=== PATIENT | female | born 1995 | race Two or more races ===

== ENCOUNTER 2020-03-05 09:20 | Outpatient (REF) | payer OTHER, SELFPAY ==
[2020-03-05 10:29] LABS: Hematocrit 42.6 % (37-47); Mean Corpuscular HGB Conc 32.9 g/dl (31.0-35.0); Mean Corpuscular Hemoglobin 29.2 pg (27.0-33.0); Mean Corpuscular Volume 88.9 fL (80-98); Mean Platelet Volume 11.1 fL (9.4-12.3); Platelet Count 297 X10*3/uL (160-400); Red Blood Count 4.79 X10*6/uL (4.20-5.50); Red Cell Distribution Width 12.2 % (11.0-16.0)
[2020-03-05 11:14] LABS: Alanine Aminotransferase 18 U/L (0-31); Albumin Level 4.8 g/dL (3.5-5.0); Alkaline Phosphatase 72 U/L (39-117); Anion Gap 13 (12-20); Aspartate Amino Transferase 16 U/L (5-31); Bilirubin Direct 0.2 mg/dL (0.0-0.5); Bilirubin Total 0.4 mg/dL (0.0-1.0); Blood Urea Nitrogen 7 mg/dL (9-16); Calcium 9.4 mg/dL (8.4-10.2); Carbon Dioxide 28 mmol/L (22-29); Chloride 102 mmol/L (96-108); Cholesterol 165 mg/dL; Estimated Glomerular Filt Rate > 60; Glucose Fasting 83 mg/dL (60-99); HDL Cholesterol 58 mg/dL; LDL Cholesterol Calculated 98 mg/dl; Potassium 4.6 mmol/l (3.3-5.1); Sodium 138 mmol/L (135-145); Total Protein 7.4 g/dL (6.5-8.0); Triglycerides 49 mg/dL
[2020-03-05 11:34] LABS: TSH reflex Free T4 1.06 mIU/mL (0.32-4.0)
== END 2020-03-05 09:21 | disposition home or self-care (01) ==
LOC: HO.WFDLDS 09:20
PROVIDERS: Visit Provider Hospitalist
DX: Z00.00 Encounter for general adult medical examination without abnormal findings (principal); Z13.220 Encounter for screening for lipoid disorders
CPT/HCPCS: 36415; 80048; 80061; 80076; 84443; 85027

== ENCOUNTER 2020-08-06 10:54 | Outpatient (REF) | payer OTHER, SELFPAY ==
[2020-08-06 13:59] LABS: MANUAL DIFF FLAG NO
[2020-08-06 14:08] LABS: Basophils Percent Auto 0.4 % (0-2); Eosinophils Absolute Auto 0.2 X10*3/uL (0.0-0.4); Eosinophils Percent Auto 2.2 % (0-4); Hematocrit 41.6 % (37-47); Hemoglobin 13.7 g/dl (12.0-16.0); Imm Gran Abs Auto 0.02 X10*3/uL (0.00-0.03); Imm Gran Pct Auto 0.3 % (0.0-0.4); Lymphocytes Absolute Auto 1.5 X10*3/uL (1.2-4.9); Lymphocytes Percent Auto 19.6 % (20-40); Mean Corpuscular HGB Conc 32.9 g/dl (31.0-35.0); Mean Corpuscular Hemoglobin 28.7 pg (27.0-33.0); Mean Platelet Volume 11.9 fL (9.4-12.3); Monocytes Absolute Auto 0.4 X10*3/uL (0.1-1.2); Monocytes Percent Auto 5.6 % (2-11); Neutrophils Absolute Auto 5.5 X10*3/uL (2.0-8.3); Neutrophils Percent Auto 71.9 % (45-73); Platelet Count 243 X10*3/uL (160-400); Red Blood Count 4.78 X10*6/uL (4.20-5.50); Red Cell Distribution Width 11.6 % (11.0-16.0); White Blood Count 7.7 X10*3/uL (4.8-10.8)
[2020-08-06 14:12] LABS: Glucose Urine UA NEG (NEG); Leukocyte Esterase Urine TRACE (NEG); Nitrite Urine NEG (NEG); Specific Gravity - Urine 1.025 (1.005-1.025); Urine Blood 3+ (NEG); Urine Ketones NEG (NEG); Urine Protein 2+ MG/DL (NEG-TRACE)
[2020-08-06 14:16] LABS: Appearance Urine TURBID; Color Urine RED
[2020-08-06 14:17] LABS: PH 7.5 (5.0-8.0)
[2020-08-06 14:27] LABS: Cholesterol 186 mg/dL; HDL Cholesterol 56 mg/dL; LDL Cholesterol Calculated 119 mg/dl; Triglycerides 59 mg/dL
[2020-08-06 14:39] LABS: Bacteria Urine 1+ /LPF; Mucus Urine 1+ /LPF; RBC Urine TNTC /HPF (0); Squamous Epithelial Cell Urine 2+ /LPF
[2020-08-06 14:51] LABS: TSH reflex Free T4 0.66 uIU/mL (0.32-4.0)
[2020-08-06 15:14] LABS: Erythrocyte Sedimentation Rate 4 MM/HR (0-20)
[2020-08-06 15:16] LABS: Folate 11.1 ng/mL (> or = 4.0); Vitamin B12 362 pg/mL (200-900)
[2020-08-07 13:36] LABS: CRP High Sensitivity <0.3 mg/L
[2020-08-07 14:01] LABS: Anti Nuclear Antibody Screen NEGATIVE (NEGATIVE)
== END 2020-08-06 10:55 | disposition home or self-care (01) ==
LOC: HO.WFDLDS 10:54
PROVIDERS: Visit Provider Family Medicine
DX: Z00.00 Encounter for general adult medical examination without abnormal findings (principal); G89.29 Other chronic pain; R51.9 Headache, unspecified; E53.8 Deficiency of other specified B group vitamins
CPT/HCPCS: 36415; 80061; 81001; 81003; 82607; 82746; 84443; 85025; 85652; 86038; 86039; 86141

== ENCOUNTER 2020-09-09 15:56 | Outpatient (REF) | payer OTHER, SELFPAY ==
--- NOTE | ~2020-09-09 | XR_ITS ---
EXAMINATION: XR CERVICAL SPINE CLINICAL INFORMATION: Tension headache. COMPARISON: None TECHNIQUE: 3 views of the cervical spine were obtained. FINDINGS: There are no prevertebral soft tissue or bony abnormalities demonstrated. No compression fractures or subluxations are identified. Alignment is maintained at the atlanto-axial articulation. The disc spaces are preserved. No endplate changes are seen. The prevertebral soft tissues are normal. The foramina are patent. XR/XR cervical spine 3V IMPRESSION: Unremarkable cervical spine .
== END 2020-09-09 15:57 | disposition home or self-care (01) ==
LOC: HO.XRAY 15:56
PROVIDERS: PCP Family Medicine; Visit Provider Psychiatry & Neurology Neurology
DX: G44.209 Tension-type headache, unspecified, not intractable (principal)
CPT/HCPCS: 72040

== ENCOUNTER 2020-09-21 12:23 | Outpatient (REF) | payer OTHER, SELFPAY ==
[2020-09-21 13:49] LABS: Glucose Urine UA NEG (NEG); Leukocyte Esterase Urine NEG (NEG); Nitrite Urine NEG (NEG); PH 6.5 (5.0-8.0); Specific Gravity - Urine <= 1.005 (1.005-1.025); Urine Blood NEG (NEG); Urine Ketones NEG (NEG); Urine Protein NEG (NEG-TRACE)
[2020-09-21 13:53] LABS: Appearance Urine CLEAR; Color Urine STRAW
== END 2020-09-21 12:24 | disposition home or self-care (01) ==
LOC: HO.WFDLNP 12:23
PROVIDERS: Visit Provider Family Medicine
DX: Z00.00 Encounter for general adult medical examination without abnormal findings (principal); R82.90 Unspecified abnormal findings in urine
CPT/HCPCS: 81003; 87086

== ENCOUNTER 2021-01-19 19:22 | Outpatient (REF) | payer OTHER, SELFPAY ==
[2021-01-19 19:35] LABS: UPreg QC Valid YES; Urine Pregnancy POSITIVE (NEGATIVE)
== END 2021-01-19 19:23 | disposition home or self-care (01) ==
LOC: HO.LNP 19:22
PROVIDERS: Visit Provider Family Medicine
DX: S16.1XXS Strain of muscle, fascia and tendon at neck level, sequela (principal); R51.9 Headache, unspecified; G89.29 Other chronic pain; F41.9 Anxiety disorder, unspecified
CPT/HCPCS: 81025

== ENCOUNTER 2021-07-19 19:18 | Outpatient (REF) | payer OTHER, SELFPAY ==
--- NOTE | ~2021-07-19 | MR_ITS ---
MR CERVICAL SPINE WITHOUT IV CONTRAST CLINICAL INFORMATION: Cervical region radiculopathy. COMPARISON: Cervical spine radiographs September 09, 2020. TECHNIQUE: MRI of the cervical spine was obtained using routine sequences without contrast. FINDINGS: Cervical alignment is normal. The vertebral body heights are maintained. Disc volumes are preserved. There is no bone marrow edema. There are no acute fractures. Craniocervical junction is unremarkable. Partially imaged intracranial compartment is unremarkable. Cervical arterial flow voids are maintained. There are no cord signal changes. No significant extraspinal soft tissue findings. C2-C3: Disc contour is normal. Bilateral facet arthropathy. Mild right-sided foraminal encroachment. No central canal and no left foraminal stenosis. C3-C4: Uncovertebral joint spurring and facet arthropathy result in mild right-sided foraminal encroachment. No central canal and no left foraminal stenosis. C4-C5: Uncovertebral joint spurring and facet arthropathy result in mild left-sided foraminal encroachment. No central canal and no right foraminal stenosis. C5-C6: Slight annular disc bulge. No central canal stenosis and no foraminal stenosis. C6-C7: Shallow central disc protrusion. No central canal stenosis and no foraminal stenosis. C7-T1: Disc contour is normal. No central canal stenosis and no foraminal stenosis. MR/MR cervical spine wo con IMPRESSION: Mild cervical spondylosis. No severe central canal stenosis and no severe foraminal stenosis within the cervical spine.
== END 2021-07-19 19:19 | disposition home or self-care (01) ==
LOC: HO.MRI 19:18
PROVIDERS: Visit Provider Family Medicine
DX: M54.12 Radiculopathy, cervical region (principal); M54.2 Cervicalgia; R51.9 Headache, unspecified
CPT/HCPCS: 72141

== ENCOUNTER 2023-04-04 09:05 | Outpatient (AMB) | payer OTHER, SELFPAY ==
--- NOTE | 2023-04-04 09:10 | MHC.PC.OV ---
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 Accompanied by: Self / Same As Patient Allergies amoxicillin Allergy (Mild, Verified 04/04/23 09:28) not sure will check with her mom Tobacco use date assessed: 04/04/23 Dental Screening Dental Screen Date: 04/04/23 Did you have a dental visit in the last 12 months?: Yes Did you have a dental problem in the last 6 months where you did not have access to dental care?: No Was dental information given to patient?: Patient has dentist HPI HPI Comments History of Present Illness Details 27-year-old female presents with complaints of chronic posterior next pain which has been ongoing for about a year. She notes that it feels like it's on fire. She also reports neck stiffness. She notes associated bilat eye pain with neck movements. She states that her symptoms intensifies with neck movements She is followed by [facility]. Her last visit was on 01/2023. She received steroid injection of C2-4. She notes that the injection was not effective. She has an appointment next week. She has not resumed PT She notes that she never tried gabapentin although he was prescribed by Neurology a long time ago She states that she is currently breast feeding [facility] Medical History Aftercare following left ankle joint replacement surgery Surgical History (Updated 04/04/23 @ 09:16 by Mery Dacosta MA) No pertinent past surgical history Family History Maternal Grandmother High blood pressure Diabetes Mother High blood pressure Social History Housing: Apartment Alcohol intake: never Patient Tobacco Use Status: Never used Tobacco e-Cigarette/Vaping Use: Never Used Second Hand Smoke Exposure: No service: No Current occupational exposures/hazards: No Cognitive needs: No Hearing needs: No Vision needs: No Questionnaire Thrive Questionnaire Date Thrive assessed: 01/19/21 NICHOLAS-7 AMB Questionnaire NICHOLAS-7 Date NICHOLAS - 7 assessed: 11/02/21 Source: Developed by Drs. Timmy Carpenter, Lavinia Somers, Gerardo Street and colleagues, with an educational sean from [employer]. Review of Systems Const Details: Const Denies chills, Denies fatigue, Denies fever(s), Denies headache(s) and Denies weakness ENT Denies dizziness and Denies headache(s) Card Denies chest pain, Denies lightheadedness, Denies dyspnea and Denies other (Palpitations) Resp Denies cough, Denies dyspnea, Denies wheezing and Denies other ( shortness of breath) GI Denies abdominal pain, Denies melena, Denies hematochezia, Denies change in bowel habits, Denies dyspepsia and Denies nausea Denies hematuria and Denies dysuria Musc Reports neck pain, Denies abnormal gait, Denies numbness and Denies tingling Skin/Breast Denies rash, Denies unusual bruising and Denies wounds Neuro Denies abnormal gait, Denies dizziness, Denies headache(s), Denies memory loss, Denies numbness, Denies Sensory deficit (Neuro), Denies tingling and Denies weakness Psych Denies anxiety, Denies depression, Denies memory loss Endo Denies cold intolerance, Denies fatigue, Denies heat intolerance, Denies polydipsia and Denies polyuria Aller/Immun Denies wheezing Physical exam (Primary Care) Vital Signs: Last Vital Signs Temp 96.8 F 04/04/23 09:11 Pulse 81 04/04/23 09:11 Resp 13 04/04/23 09:11 BP 108/66 04/04/23 09:11 Pulse Ox 98 04/04/23 09:11 Oxygen Delivery Method Room Air 04/04/23 09:11 BMI result Body Mass Index 27.5 Tobacco/Smoking Status: Tobacco use Status Tobacco use date assessed 04/04/23 04/04/23 09:16 Patient Tobacco Use Status Never used Tobacco 04/04/23 09:16 e-Cigarette/Vaping Use Never Used 04/04/23 09:16 Thrive Assessment: Date of Thrive Assessment Date Thrive assessed 01/19/21 04/04/23 09:16 Const Other: General: no acute distress and well developed Nutritional Appearance: well nourished Orientation/consciousness: patient oriented x3 HENOK Head: Yes normocephalic and Yes atraumatic Eyes General: appearance normal, both eyes and all related structures Pupils: Equal, round and reactive pupils present EOM: EOMs intact bilaterally Resp Effort & Inspection: normal respiratory effort Auscultation: clear to auscultation bilaterally Cardio Rate: regular rate Rhythm: regular rhythm Heart sounds: S1 normal heart sound present, S2 normal heart sound present, no gallops, no murmurs and no rubs GI Palpation (GI): No Abdominal aortic bruit present, Soft to palpation, nontender, No hepatosplenomegaly present and No Rebound tenderness present Auscultation: normal bowel sounds General: Yes no CVA tenderness Back/Spine/Pelvis Back: no CVA tenderness Cervical Spine: cervical ROM normal and No Cervical spine tenderness Thoracic/Lumbar Spine: thoraco-lumbar ROM normal, No pain with thoraco-lumbar ROM, No thoracic spinal tenderness and No lumbar spinal tenderness Extrem General: Yes normal to inspection, No edema and No calf tenderness Skin General: warm and dry. Normal skin color. Normal skin turgor Lesions: no lesions Rashes: no rashes Trauma: no lacerations or abrasions Wounds: no wounds Nails: normal Neuro General: patient oriented x3, gait normal and no focal neuro deficit Cranial nerves: Yes Equal, round and reactive pupils present Cognition (Neuro): normal cognition Gait exam (Neuro): Normal gait present Sensory Exam: No Sensory deficit (Neuro) Psych Appearance: grossly normal Affect: normal affect Attitude: cooperative Thought process: Normal thought process present Assessment and Plan Assessment & Plan (1) Cervicalgia: Code(s): M54.2 - Cervicalgia Plan: Neck pain and stiffness, worses with movements Cervical spine nontender to palpation Gabapentin ordered. Take as prescribed. Save for Warm/cool compresses encouraged Follow-up with physiatry as planned Follow-up with PCP for an extended physical exam Return with worsening or new symptoms Verbalized understanding and agreed with treatment plan Medications: New gabapentin 300 mg PO BEDTIME 30 caps 0RF 30 days Coding Level of Care Code Est Pt Level 3 (09604) Diagnoses Cervicalgia M54.2
[2023-04-04 09:11] VITALS: BP 108/66; PULSE 81; RESP 13; TEMP 36; O2SAT 98; BMI 27.5
== END 2023-04-04 09:45 | disposition home or self-care (01) ==
PROVIDERS: PCP Family Medicine; Visit Provider Nurse Practitioner Family
DX: M54.2 Cervicalgia (principal)
CPT/HCPCS: 99213

== ENCOUNTER 2024-02-01 11:38 | Outpatient (AMB) | payer OTHER, SELFPAY ==
--- NOTE | 2024-02-01 12:03 | MHC.PC.OV ---
Vital Signs 02/01/24 12:07 Height 5 ft 4 in Weight 159 lb 8 oz BMI 27.4 BP 107/57 L Blood Pressure Location Lt brachial Position Sitting Respiration 16 Pulse 90 Pulse Source Pulse Oximeter Temp 98.1 F Temp Source Temporal Artery Scan Pulse Oximetry (%) 98 Oxygen Delivery Method Room Air Intake Visit Reasons: f/u neck pain Intake Note: f/u neck pain Allergies amoxicillin Allergy (Mild, Verified 02/01/24 12:05) not sure will check with her mom Tobacco use date assessed: 04/04/23 Dental Screening Dental Screen Date: 04/04/23 HPI f/u neck pain HPI Details 28 y/o female presents today to f/u neck pain. Has been seen by [facility] in the spring. Was prescribed gabapentin. States she has trialed some PT which did help some. She also notes they have trialed injection therapy which helped as well. She notes she thinks neck pain comes from her anxiety. She feels she does not think pain meds will help much for her. HPI Comments History of Present Illness Details Documentation assistance for Aakash Rivera MD, was provided by Germán Man, Tumbling Instructor on 02/01/2024 at 12:55 PM EST. I, Dr. Rivera, have read, observed, and verified documentation. [facility] Medical History Aftercare following left ankle joint replacement surgery Surgical History (Updated 04/04/23 @ 09:16 by ALEX Hsieh) No pertinent past surgical history Family History Maternal Grandmother High blood pressure Diabetes Mother High blood pressure Social History Housing: Apartment Alcohol intake: never Patient Tobacco Use Status: Never used Tobacco e-Cigarette/Vaping Use: Never Used Second Hand Smoke Exposure: No service: No Current occupational exposures/hazards: No Cognitive needs: No Hearing needs: No Vision needs: No Questionnaire PHQ-9 Over the last 2 weeks, how often have you been bothered by any of the following problems? 4. Feeling tired or having little energy: several days 5. Poor appetite or overeating: not at all 9. Thoughts that you would be better off or of hurting yourself in some way: not at all Source: Developed by Drs. Timmy Carpenter, Lavinia oSmers, Gerardo Street and colleagues, with an educational sean from [employer]. Thrive Questionnaire Date Thrive assessed: 01/19/21 I am a: Patient What is your living situation today?: I have a steady place to live Within the past 12 months, did the food you bought not last and you didn't have the money to get more?: I choose not to answer this question Within the past 12 months, did you worry whether your food would run out before you got money to buy more?: I choose not to answer this question Do you have trouble paying for medicines?: No Do you have trouble getting transportation to medical appointments?: No Do you have trouble paying your heating and electricity bill?: I choose not to answer this question Do you have trouble taking care of your child, family member or friend?: No Do you have trouble with day-to-day activities such as bathing, preparing meals, shopping, managing finances, etc.?: No Are you currently unemployed and looking for a job?: No Are you interested in more education?: No Please select the resources that you would like help with: None Currently or been in a relationship where the following occur: No concerns reported THRIVE Score: 0 AUDIT C Alcohol Use Questionnaire (AUDIT-C) 1. How often do you have a drink containing alcohol?: Never Total Score: 0 NICHOLAS-7 AMB Questionnaire NICHOLAS-7 Date NICHOLAS - 7 assessed: 11/02/21 Feeling nervous, anxious, or on edge: 1 = Several days Not being able to stop or control worryin = Not at all Worrying too much about different things: 0 = Not at all Trouble relaxin = Not at all Being so restless that it is hard to sit still: 0 = Not at all Becoming easily annoyed or irritable: 1 = Several days Feeling afraid as if something awful might happen: 0 = Not at all Total NICHOLAS-7 score (0-4 normal; 5-9 mild; 10-14 moderate; 15-21 severe): 2 Source: Developed by Lavinia Almodovar Kurt Kroenke and colleagues, with an educational sean from [employer]. Review of Systems Const Denies chills, Denies fatigue, Denies fever(s), Denies headache(s) and Denies weakness ENT Denies dizziness, Denies headache(s) and Reports neck pain Card Denies dyspnea Resp Denies cough, Denies dyspnea, Denies wheezing and Denies other (shortness of breath) Musc Reports neck pain, Denies numbness and Denies tingling Neuro Denies dizziness, Denies headache(s), Denies numbness, Denies tingling and Denies weakness Psych Reports anxiety and Denies depression Endo Denies fatigue Aller/Immun Denies wheezing Physical exam (Primary Care) Vital Signs: Last Vital Signs Temp 98.1 F 02/01/24 12:07 Pulse 90 02/01/24 12:07 Resp 16 02/01/24 12:07 BP 107/57 L 02/01/24 12:07 Pulse Ox 98 02/01/24 12:07 Oxygen Delivery Method Room Air 02/01/24 12:07 BMI result Body Mass Index 27.4 Tobacco/Smoking Status: Tobacco use Status Tobacco use date assessed 04/04/23 02/01/24 12:04 Patient Tobacco Use Status Never used Tobacco 02/01/24 12:04 e-Cigarette/Vaping Use Never Used 02/01/24 12:04 Thrive Assessment: Date of Thrive Assessment Date Thrive assessed 01/19/21 02/01/24 12:04 Currently or been in a relationship where the following occur: No concerns reported Const General: well developed; No acute distress Nutritional Appearance: well nourished Orientation/consciousness: patient oriented x3 [facility] Head: Yes normocephalic and Yes atraumatic Eyes General: appearance normal, both eyes and all related structures Pupils: Equal, round and reactive pupils present EOM: EOMs intact bilaterally Resp Effort & Inspection: normal respiratory effort Auscultation: clear to auscultation bilaterally Cardio Rate: regular rate Rhythm: regular rhythm Heart sounds: S1 normal heart sound present, S2 normal heart sound present, no gallops, no murmurs and no rubs Neuro General: patient oriented x3 and gait normal Cranial nerves: Yes Equal, round and reactive pupils present Psych Affect: normal affect Coding Level of Care Code Est Pt Level 3 (18528) Diagnoses Cervicalgia M54.2 Anxiety F41.9 Assessment & Plan Assessment & Plan (1) Cervicalgia: Code(s): M54.2 - Cervicalgia Category: Medical Plan: Longstanding?cervicalgia. She?had?an?MRI?which?showed?cervical?spine facet?arthropathy?but?no?canal?stenosis?or?foraminal?stenoses. Also?has?rather?tense,?tender?trapezius?muscles?and?cervical?paraspinous?muscles. Start?naproxen?b.i.d. Will?also?refer?her?to?[facility]where?she?has?done?physical?therapy?and?injection?therapy?in?the?past?with?good?affect. Will?also?give?her?a?course?of?muscle?relaxant (2) Anxiety: Code(s): F41.9 - Anxiety disorder, unspecified Category: Medical Plan: This?may?be?an?underlying?cause?for?the?neck?muscle?tension Will?follow-up?at?her?next?visit Orders: Orders Comprehensive Mccrory. Panel Fast Today Z00.00 - Encounter for general adult medical examination without abnormal findings Complete Blood Count Auto Diff Today Z00.00 - Encounter for general adult medical examination without abnormal findings UA and rflx microscopic Today Z00.00 - Encounter for general adult medical examination without abnormal findings Erythrocyte Sedimentation Rate Today M54.2 - Cervicalgia Lipid Panel Today Z00.00 - Encounter for general adult medical examination without abnormal findings Microalbumin, Random (w Creat) Today I10 - Essential (primary) hypertension TSH reflex Free T4 Today Z00.00 - Encounter for general adult medical examination without abnormal findings Referrals Physiatry Referral M54.2 - Cervicalgia Medications: New cyclobenzaprine 10 mg PO BID 10 days PRN 20 tabs 0RF muscle spasm naproxen 500 mg PO BID 30 days PRN 60 tabs 0RF pain
[2024-02-01 12:07] VITALS: BP 107/57; PULSE 90; RESP 16; TEMP 36.7; O2SAT 98; BMI 27.4
== END 2024-02-01 12:58 | disposition home or self-care (01) ==
LOC: HO.HMCFM 11:39
PROVIDERS: PCP Family Medicine; Visit Provider Family Medicine
DX: M54.2 Cervicalgia (principal); F41.9 Anxiety disorder, unspecified

== ENCOUNTER → 2024-02-01 11:38 | Outpatient (BNVA) | payer OTHER, SELFPAY | PROVIDERS: PCP Family Medicine; Visit Provider Family Medicine | DX: M54.2 Cervicalgia (principal); F41.9 Anxiety disorder, unspecified | CPT/HCPCS: 99212 ==

== ENCOUNTER 2024-12-04 15:50 | Outpatient (AMB) | payer OTHER, SELFPAY ==
--- NOTE | 2024-12-04 16:04 | A.OFFPC_ITS ---
Vital Signs 12/04/24 16:09 Height 5 ft 4 in Weight 165 lb 4 oz BMI 28.4 BP 121/65 Blood Pressure Location Rt brachial Position Sitting Respiration 12 Pulse 74 Pulse Source Pulse Oximeter Temp 96.6 F L Temp Source Temporal Artery Scan Pulse Oximetry (%) 97 Oxygen Delivery Method Room Air Intake Visit Reasons: Physical Intake Note: Physical Director Of Physical Education Required: No Allergies amoxicillin Allergy (Mild, Verified 12/04/24 16:05) not sure will check with her mom Medication List - Last Reconciled 12/04/24 by Aakash Rivera MD naproxen 500 mg PO BID PRN 30 days Tobacco use date assessed: 12/04/24 Dental Screening Dental Screen Date: 12/04/24 Did you have a dental visit in the last 12 months?: Yes Did you have a dental problem in the last 6 months where you did not have access to dental care?: No Was dental information given to patient?: Patient has dentist HPI Physical HPI Details 29 y/o female presents for a CPE with f/ u labs and health maintenance. No recent labs to review. Pt notes most of her anxiety/depression stems from feeling she is not able to pass a particular exam. She requests help for difficulty concentrating. [facility] Medical History Aftercare following left ankle joint replacement surgery Surgical History (Updated 04/04/23 @ 09:16 by ALEX Hsieh) No pertinent past surgical history Family History Maternal Grandmother High blood pressure Diabetes Mother High blood pressure Social History Housing: Apartment Alcohol intake: never Patient Tobacco Use Status: Never used Tobacco e-Cigarette/Vaping Use: Never Used Second Hand Smoke Exposure: No service: No Current occupational status: employed Current occupational exposures/hazards: No Cognitive needs: No Hearing needs: No Vision needs: No Questionnaire PHQ-9 Over the last 2 weeks, how often have you been bothered by any of the following problems? 1. Little interest or pleasure in doing things: not at all 2. Feeling down, depressed, or hopeless: not at all 3. Trouble falling or staying asleep, or sleeping too much: not at all 4. Feeling tired or having little energy: more than half the days 5. Poor appetite or overeating: not at all 6. Feeling bad about yourself - or that you are a failure or have let yourself or your family down: more than half the days 7. Trouble concentrating on things, such as reading the newspaper or watching television: more than half the days 8. Moving or speaking so slowly that other people could have noticed. Or the opposite - being so fidgety or restless that you have been moving around a lot more than usual: not at all 9. Thoughts that you would be better off or of hurting yourself in some way: not at all Total score: 6 Depression Screening Interpretation: Positive Depression Screening Done: Yes 55390 - PHQ-9 Billing: Yes Source: Developed by Drs. Timmy Carpenter, Lavinia Somers, Gerardo Street and colleagues, with an educational sean from [employer]. Thrive Questionnaire Date Thrive assessed: 12/04/24 I am a: Patient What is your living situation today?: I have a steady place to live Within the past 12 months, did the food you bought not last and you didn't have the money to get more?: Never true Within the past 12 months, did you worry whether your food would run out before you got money to buy more?: Never true Do you have trouble paying for medicines?: No Do you have trouble getting transportation to medical appointments?: No Do you have trouble paying your heating and electricity bill?: No Do you have trouble taking care of your child, family member or friend?: No Do you have trouble with day-to-day activities such as bathing, preparing meals, shopping, managing finances, etc.?: No Are you currently unemployed and looking for a job?: No Are you interested in more education?: No Please select the resources that you would like help with: None Currently or been in a relationship where the following occur: No concerns rep orted THRIVE Score: 0 AUDIT C Alcohol Use Questionnaire (AUDIT-C) 1. How often do you have a drink containing alcohol?: Never Total Score: 0 NICHOLAS-7 AMB Questionnaire NICHOLAS-7 Date NICHOLAS - 7 assessed: 12/04/24 Feeling nervous, anxious, or on edge: 0 = Not at all Not being able to stop or control worryin = Not at all Worrying too much about different things: 1 = Several days Trouble relaxin = Several days Being so restless that it is hard to sit still: 0 = Not at all Becoming easily annoyed or irritable: 1 = Several days Feeling afraid as if something awful might happen: 0 = Not at all Total NICHOLAS-7 score (0-4 normal; 5-9 mild; 10-14 moderate; 15-21 severe): 3 Source: Developed by Drs. Timmy Carpenter, Lavinia Somers, Gerardo Street and colleagues, with an educational sean from [employer]. NICHOLAS-7 Assessment Billing NICHOLAS-7 Assessment Tool: NICHOLAS-7 Assessment 74839 Review of Systems Const Denies chills, Denies fatigue, Denies fever(s), Denies headache(s) and Denies weakness Eyes Denies change in vision ENT Denies dizziness, Denies headache(s), Denies hearing loss, Denies nasal congestion, Denies sinus pain, Denies sinus pressure and Denies sore throat Card Denies chest pain, Denies lightheadedness, Denies dyspnea and Denies other (palpitations) Resp Denies cough, Denies dyspnea and Denies wheezing GI Denies abdominal pain, Denies melena, Denies hematochezia, Denies change in bowel habits, Denies dyspepsia and Denies nausea Denies hematuria and Denies dysuria Musc Denies abnormal gait, Denies myalgias, Denies arthralgias, Denies numbness and Denies tingling Skin/Breast Denies rash, Denies unusual bruising and Denies wounds Neuro Denies abnormal gait, Denies dizziness, Denies headache(s), Denies memory loss, Denies numbness, Denies Sensory deficit (Neuro), Denies tingling and Denies weakness Psych Denies anxiety, Denies depression and Denies memory loss Endo Denies cold intolerance, Denies fatigue, Denies heat intolerance, Denies polydipsia and Denies polyuria Ben/Lymph Denies easy bleeding and Denies easy bruising Aller/Immun Denies wheezing Physical exam (Primary Care) Vital Signs: Last Vital Signs Temp 96.6 F L 12/04/24 16:09 Pulse 74 12/04/24 16:09 Resp 12 12/04/24 16:09 BP 121/65 12/04/24 16:09 Pulse Ox 97 12/04/24 16:09 Oxygen Delivery Method Room Air 12/04/24 16:09 BMI result Body Mass Index 28.4 Tobacco/Smoking Status: Tobacco use Status Tobacco use date assessed 12/04/24 12/04/24 16:07 Patient Tobacco Use Status Never used Tobacco 12/04/24 16:07 e-Cigarette/Vaping Use Never Used 12/04/24 16:07 PHQ-9: PHQ-9 Score PHQ-9: Total score 6 12/04/24 16:07 Depression Screening Interpretation: Positive Thrive Assessment: Date of Thrive Assessment Date Thrive assessed 12/04/24 12/04/24 16:07 Currently or been in a relationship where the following occur: No concerns reported Const General: no acute distress, well developed, alert and awake Nutritional Appearance: well nourished Orientation/consciousness: patient oriented x3 HENMT Head: Yes normocephalic and Yes atraumatic Ears: hearing grossly normal bilaterally and TM's normal bilaterally General nose exam: Normal external nose present and Normal nares present Mouth: Normal oral and palatal mucosa present and moist mucous membranes Teeth and gingiva: dentition normal Throat: Yes posterior oropharynx normal Eyes General: appearance normal, both eyes and all related structures Pupils: Equal, round and reactive pupils present and Pupil accommodation reflex normal EOM: EOMs intact bilaterally Neck Neck: Yes normal visual inspection, Yes no lymphadenopathy and Yes trachea midline Thyroid: Thyroid normal Carotids: no bruits Lymphatic: no lymphadenopathy noted Chest Chest palpation & inspection: normal inspection of the chest Resp Effort & Inspection: normal respiratory effort Auscultation: clear to auscultation bilaterally Cardio Rate: regular rate Rhythm: regular rhythm Heart sounds: S1 normal heart sound present, S2 normal heart sound present, no gallops, no murmurs and no rubs Bruits: no abdominal aortic bruits and no carotid bruits GI Palpation (GI): No Abdominal aortic bruit present, Soft to palpation, nontender, No hepatosplenomegaly present and No Rebound tenderness present Auscultation: normal bowel sounds General: Yes no CVA tenderness Back/Spine/Pelvis Back: no CVA tenderness Cervical Spine: cervical ROM normal and No Cervical spine tenderness Thoracic/Lumbar Spine: thoraco-lumbar ROM normal, No pain with thoraco-lumbar ROM, No thoracic spinal tenderness and No lumbar spinal tenderness Skin Lesions: no lesions Rashes: no rashes Trauma: no lacerations or abrasions Wounds: no wounds Nails: normal Neuro General: patient oriented x3 Cranial nerves: Yes Equal, round and reactive pupils present Cognition (Neuro): normal cognition Gait exam (Neuro): Normal gait present Motor exam (neuro): 5/5 motor strength present throughout Sensory Exam: No Sensory deficit (Neuro) Deep tendon reflexes (DTR's): Right patellar reflex intensity grade: 2+ and Left patellar reflex intensity grade: 2+ Extrem General: Yes normal to inspection and No edema Psych Appearance: grossly normal Affect: normal affect Attitude: cooperative Thought process: Normal thought process present Coding Level of Care Code Est Pt Level 4 (39361) Diagnoses Anxiety F41.9 Difficulty concentrating R41.840 Adult general medical examination Z00.00 Incidental Z33.1 Screening for cervical cancer Z12.4 Additional Codes NICHOLAS-7 Assessment Billing - NICHOLAS-7 Assessment Tool: NICHOLAS-7 Assessment [id number] ([id number]) PHQ-9 - 33987 - PHQ-9 Billing: Yes ([id number]) Assessment & Plan Assessment & Plan (1) Anxiety: Code(s): F41.9 - Anxiety disorder, unspecified Category: Medical (2) Difficulty concentrating: Code(s): R41.840 - Attention and concentration deficit Category: Medical (3) Adult general medical examination: Code(s): Z00.00 - Encounter for general adult medical examination without abnormal findings Category: Medical Plan: 29-year-old female presents for complete physical Exam within normal limits (4) Incidental : Code(s): Z33.1 - state, incidental Category: Medical Plan: Estimated delivery date is March 13 She has regular care Follow-up with your OB as recommended (5) Screening for cervical cancer: Code(s): Z12.4 - Encounter for screening for malignant neoplasm of cervix Category: Medical Plan: Currently Follow-up with your OB Plan Anxiety and difficulty concentrating She does have a therapist She would like evaluation regarding difficulty concentrating Referred to [facility] [place] outpatient psychiatric consult team. Advised patient that regardless of her diagnosis she should likely hold off on any medications until she has delivered her baby and can also discuss with her OBGYN. Orders: Orders TSH reflex Free T4 Today Z00.00 - Encounter for general adult medical examination without abnormal findings UA CC w/rflx Micro + Cult Today Z00.00 - Encounter for general adult medical examination without abnormal findings HIV Ab/Ag Today Z11.3 - Encounter for screening for infections with a predominantly sexual mode of transmission Vitamin B12 and Folate Today E53.8 - Deficiency of other specified B group vitamins Comprehensive [place]. Panel Fast Today Z00.00 - Encounter for general adult medical examination without abnormal findings Lipid Panel Today Z00.00 - Encounter for general adult medical examination without abnormal findings Microalbumin, Random (w Creat) Today I10 - Essential (primary) hypertension CT NG by PCR Urine Today Z11.3 - Encounter for screening for infections with a predominantly sexual mode of transmission Hepatitis B,C Profile Today Z11.3 - Encounter for screening for infections with a predominantly sexual mode of transmission Syphilis Screen Today Z11.3 - Encounter for screening for infections with a predominantly sexual mode of transmission Referrals Psychiatry Outpatient Consultation Service F41.9 - Anxiety disorder, unspecified, R41.840 - Attention and concentration deficit Medications: Discontinued cyclobenzaprine Discontinued Reason: Doctor's Order 10 mg PO BID 10 days PRN 20 tabs 0RF muscle spasm
[2024-12-04 16:09] VITALS: BP 121/65; PULSE 74; RESP 12; TEMP 35.9; O2SAT 97; BMI 28.4
--- OUTSIDE RECORDS SUMMARY | 2024-12-04 16:34 | XMS_ITS | Clinical Summary ---
Author Organization [facility] Address [address] [place] [phone] Phone Care Team Providers Care Doctor Assistant Name Role Phone Aakash Rivera MD Primary Care Provider Allergies Active Allergy Reactions Criticality Noted Date Comments Amoxicillin 11/07/2021 Medications No known medications Active Problems No known active problems Encounters Date Type Department Care Team Description 11/07/2024 12:10 PM EDT - 11/07/2024 11:59 PM EDT Hospital Encounter [facility] OB Ultrasound [address] [place] [address] Melodie Blank CN Discharge Disposition: Home or Self Care 11/03/2024 Telephone [facility] [address] [place] [address] [place] [address] Unknown, Tanner, 10/06/2024 Transcribe Orders [facility] [address] [place] [address] [place] [address] Martinez Marte Encounter for anatomic survey (Primary Dx) from Last 3 Months Immunizations Immunization Administration Dates Next Due Influenza, Unspecified Formulation 06/30/2020 Tdap 06/30/2020 Social History Tobacco Use Types Packs/Day Years Used Date Smoking Tobacco: Never Smokeless Tobacco: Never Tobacco Cessation:Counseling Given: Yes Alcohol Use Standard Drinks/Week Comments Never 0 (1 standard drink = 0.6 oz pur e alcohol) Child or Family Care Answer Date Record ed Do you have problems with on e of the following making it difficult for you to work, study, or receive health care? No 06/30/2020 Education Answer Date Recorded Are you interested in more education? Not on merlene e 07/28/2022 Are you concerned about learning? Not on file 07/28/2022 No 07/28/2022 No 07/28/2022 Food Answer Date Recorded Within the past 6 months we worried whether our food would run out before we got money to buy more. Never True 06/30/2020 Within the past 6 months the food we bought just didn't last and we didn't have enough money to get more. Never True Paying for Meds Answer Date Recorded Do you have trouble paying for medicines? No 06/30/2020 Paying Utility Bills Answer Date Record ed Do you have trouble paying your heating or elect ricity bill? No 06/30/2020 Transportation Answer Date Recorded Has the lack of transportati on kept you from medical appointments or from getting medications? No 06/30/2020 Digital Access Answer Date Recorded No 08/26/2022 No 08/26/2022 No 08/26/2022 Reliable internet access at home? Not on file 08/26/2022 Device with a working camera? Not on file Comments Unknown Sex and Gender Information Value Date Recorded Sex Assigned at Female 11/07/2021 8:18 PM EDT Legal Sex Female 11:20 PM EDT Gender Identity Female 11/07/2021 8:18 PM EDT Sexual Orientation Not on file Last Filed Vital Signs Vital Sign Reading Time Taken Comments Blood Pressure 127/88 11/07/2021 9:51 PM EDT Pulse 60 11/07/2021 9:51 PM EDT Temperature 36.7 C (98 F) 11/07/2021 9:51 PM EDT Respiratory Rate 16 11/07/2021 9:51 PM EDT Oxygen Saturation 99% 11/07/2021 9:51 PM EDT Inhaled Oxygen Concentration - - Weight 77.1 kg (170 lb) 11/07/2021 8:17 PM EDT Height 162.6 cm (5' 4 ) 11/07/2021 8:17 PM EDT Body Mass Index 29.18 11/07/2021 8:17 PM EDT Plan of Treatment Health Maintenance Due Date Last Done Comments HEPATITIS C SCREENING 2014 DEPRESSION SCREENING 06/30/2021 06/30/2020 SMOKING STATUS SCREENING (Once After 26 Yrs) 2022 PAP SMEAR 07/01/2023 06/30/2020 COVID-19 VACCINE (2023- season) 2023 Adult Td,Tdap Booster 06/30/2030 06/30/2020, 018 HIB VACCINES Completed 05/05/1997, 11/01, 1996, Additional history exists PNEUMOCOCCAL VACCINES (0-49 years) Aged Out 03/09/2000 No longer eligible based on patient's age to complete this topic MENINGOCOCCAL VACCINES (ACWY) Completed 10/08/2013, 08/20/2009 HIV ONE-TIME SCREENING (18-65 YEARS) Completed 03/15/2021 HEPATITIS A VACCINES Aged Out No long er eligible based on patient's age to complete this topic MENINGOCOCCAL VACCINES (B) Aged Out N o longer eligible based on patient's age to complete this topic Medical Devices Not on file Procedures Procedure Name Priority Date/Time Associated Diagnosis Comments US OB GREATER THAN OR EQUAL TO 14 WEEKS ANATOMICAL COMPLETE SURVEY Routine 11/07/2024 2:13 PM EDT Encounter for anatomic survey HM PAP SMEAR FOR RESULT ENTRY ONLY Routine 06/30/2020 from Last 3 Months or Most Recently Relevant to Health Maintenance Results * US OB GREATER THAN OR EQUAL TO 14 WEEKS ANATOMICAL COMPLETE SURVEY (11/07/2024 2:13 PM EDT) Anatomical Region Laterality Modality Abdomen, Pelvis, Uterus/Adnexa U ltrasound 11/07/2024 2:15 PM EDT Impressions 11/12/2024 7:42 AM EDT Unremarkable anatomy survey. Normal growth. Narrative 11/12/2024 7:42 AM EDT Procedure: US OB GREATER THAN OR EQUAL TO 14 WEEKS ANATOMICAL COMPLETE SURVEY 11/07/2024 12:12 PM US Indications: Anatomic Survey Comparison: No relevant recent comparisons. Maternal age: 29 years. Technique: Transabdominal scan was performed. Color Doppler and M-mode imaging was performed to assess vascularity. FINDINGS: number: 1 position: Vertex Placental position: anterior Placental Grade: 1 Placental appearance: Normal. Amniotic fluid assessment: wnl FHR: 155.0 bpm Estimated weight (EFW): 435.3 grams +/- 2 oz. 42% based on established TERA Hadlock. Reported LMP: 06/08/2024 Gestational Age by LMP: 21 weeks 5 day(s) Ultrasound EGA: 21 weeks 4 day(s) Ultrasound TERA: 03/16/2025 Established TERA: 03/15/2025 Biometry: BPD: 5.08 cm, consistent with 21 weeks 3 day(s) and 35% Head Circumference: 19.39 cm, consistent with 21 weeks 5 day(s) and 35% Abdominal Circumference: 17.34 cm, consistent with 22 weeks 2 day(s) and 61% Femur Length: 3.42 cm, consistent with 20 weeks 6 day(s) and 13% Humerus: 3.45 cm, consistent with 21 weeks 6 day(s) and 51% Cerebellum: 2.28 cm, consistent with 22 weeks 5 day(s) Lat Vent: 0.63 cm Cist Ma.44 cm HC/AC: 1.12 FL/BPD: 0.67 FL/AC: 0.20 Documented anatomy: Head/Neck: Lateral ventricles - Seen Choroid plexus - Seen Midline falx - Seen Cavum septi pellucidi - Seen Cerebellum - Seen Cisterna magna - Seen Nuchal fold - Seen Face: Orbit/Lenses - Seen Upper lip - Seen Profile - Seen Chest: Four-chamber view - Seen Left ventricular outflow tract - Seen Right ventricular outflow tract - Seen Aortic Arch - Seen Ductal Arch - Seen 3 Vessel View - Seen 3 VTV - Seen Abdomen: Stomach - Seen Diaphragm - Seen Kidneys - Seen Urinary bladder - Seen Abdominal cord insertion - Seen Three-vessel cord - Seen Placental Cord Insertion - Seen Limbs: Right arm and hand present - Seen Left arm and hand present - Seen Right leg and foot present - Seen Left leg and foot present - Seen Spine (in sagittal and transverse plane): Cervical - Seen Thoracic - Seen Lumbar - Seen Sacral - Seen Motion: Normal motion was observed. Cervix: 4.63 cm Uterine myometrium: Grossly normal Right ovary: Not visualized. Left ovary: Not visualized. Tech Comments: Crane . EFW = 42%. anatomy appears grossly normal. Active fetus. Normal fluid. Procedure Note Landon Myers MD - 11/12/2024 Procedure: US OB GREATER THAN OR EQUAL TO 14 WEEKS ANATOMICAL COMPLETESURVEY 11/07/2024 12:12 PM US Indications: Anatomic Survey Comparison: No relevant recent comparisons. Maternal age: 29 years. Technique: Transabdominal scan was performed. Color Doppler and M-modeimaging was performed to assess vascularity. FINDINGS: number: 1 position: Vertex Placental position: anterior Placental Grade: 1 Placental appearance: Normal. Amniotic fluid assessment: wnl FHR: 155.0 bpm Estimated weight (EFW): 435.3 grams +/- 2 oz. 42% based on established TERA [place]. Reported LMP: 06/08/2024 Gestational Age by LMP: 21 weeks 5 day(s) Ultrasound EGA: 21 weeks 4 day(s) Ultrasound TERA: 03/16/2025 Established TERA: 03/15/2025 Biometry: BPD: 5.08 cm, consistent with 21 weeks 3 day(s) and 35% Head Circumference: 19.39 cm, consistent with 21 weeks 5 day(s) and 35% Abdominal Circumference: 17.34 cm, consistent with 22 weeks 2 day(s) and61% Femur Length: 3.42 cm, consistent with 20 weeks 6 day(s) and 13% Humerus: 3.45 cm, consistent with 21 weeks 6 day(s) and 51% Cerebellum: 2.28 cm, consistent with 22 weeks 5 day(s) Lat Vent: 0.63 cm Cist Ma.44 cm HC/AC: 1.12 FL/BPD: 0.67 FL/AC: 0.20 Documented anatomy: Head/Neck: Lateral ventricles - Seen Choroid plexus - Seen Midline falx - Seen Cavum septi pellucidi - Seen Cerebellum - Seen Cisterna magna - Seen Nuchal fold - Seen Face: Orbit/Lenses - Seen Upper lip - Seen Profile - Seen Chest: Four-chamber view - Seen Left ventricular outflow tract - Seen Right ventricular outflow tract - Seen Aortic Arch - Seen Ductal Arch - Seen 3 Vessel View - Seen 3 VTV - Seen Abdomen: Stomach - Seen Diaphragm - Seen Kidneys - Seen Urinary bladder - Seen Abdominal cord insertion - Seen Three-vessel cord - Seen Placental Cord Insertion - Seen Limbs: Right arm and hand present - Seen Left arm and hand present - Seen Right leg and foot present - Seen Left leg and foot present - Seen Spine (in sagittal and transverse plane): Cervical - Seen Thoracic - Seen Lumbar - Seen Sacral - Seen Motion: Normal motion was observed. Cervix: 4.63 cm Uterine myometrium: Grossly normal Right ovary: Not visualized. Left ovary: Not visualized. Tech Comments: Crane . EFW = 42%. anatomy appears grossly normal.Active fetus. Normal fluid. IMPRESSION: Unremarkable anatomy survey. Normal growth. Melodie Blank CNM [facility] Final Res ult * PAP SMEAR FOR RESULT ENTRY ONLY (06/30/2020) Pap smear referred Historical Provider HEALTH MAINTENANCE Final Result from Last 3 Months or Most Recently Relevant to Health Maintenance Insurance [facility] [place] [address] [place] [address] [place] [address] [place] [address] [place] [address] [place] [address] [address] [place] [address] [place] [address] [place] [address] [place] [place] [address] [place] [address] ACO Care Teams Doctor Assistant Relationship Specialty Start Date End Date Aakash Rivera MD [address] [place] [address] PCP - General 04/26/21 Additional Source Comments The information contained in this document represents components of the legal health record. It is not the complete legal health record.[facility]
--- OUTSIDE RECORDS SUMMARY | 2024-12-04 16:34 | XMS_ITS | Clinical Summary ---
Author Organization [facility] it Address [address] [place] [address] Care Team Providers Care Shuttle Inspector Name Role Phone Unavailable Primary Care Provider Unavailabl e Social History Tobacco Use Types Packs/Day Years Used Date Smoking Tobacco: Never Assessed Comments Unknown Sex and Gender Information Value Date Recorded Sex Assigned at Not on file Legal Sex Female 2:07 AM EST Gender Identity Not on file Sexual Orientation Not on file Plan of Treatment Health Maintenance Due Date Last Done Comments DTaP,Tdap,and Td Vaccines (1 - Tdap) 2015 Hepatitis B Vaccines (1 of 3 - 19+ 3-dose series) 2015 Cervical Cancer Screening: P ap Smear 2017 Depression Screening 04/02/2024 COVID-19 Vaccine (1 - 2023-2 5 season) 2024 Influenza Vaccine (#1) 2024 HIB Vaccines Aged Out No longer eligi ble based on patient's age to complete this topic HPV Vaccines Aged Out No longer eligi ble based on patient's age to complete this topic Hepatitis A Vaccines Aged Out No long er eligible based on patient's age to complete this topic IPV Vaccines Aged Out No longer eligi ble based on patient's age to complete this topic MMR Vaccines Aged Out No longer eligi ble based on patient's age to complete this topic Meningococcal ACWY Vaccine Aged Out N o longer eligible based on patient's age to complete this topic Meningococcal B Vaccine Aged Out No l onger eligible based on patient's age to complete this topic Pneumococcal Vaccine: Pediat rics (0 to 5 Years) and At-Risk Patients (6 to 49 Years) Aged Out No longer eligible b ased on patient's age to complete this topic RSV Immunization Patients Un mitzi 20 months Aged Out No longer eligible b ased on patient's age to complete this topic Varicella Vaccines Aged Out No longer eligible based on patient's age to complete this topic
== END 2024-12-04 17:05 | disposition home or self-care (01) ==
LOC: HO.HMCFM 15:51
PROVIDERS: PCP Family Medicine; Visit Provider Family Medicine
DX: Z00.00 Encounter for general adult medical examination without abnormal findings (principal); F41.9 Anxiety disorder, unspecified; R41.840 Attention and concentration deficit; Z33.1 Pregnant state, incidental

== ENCOUNTER → 2024-12-04 15:50 | Outpatient (BNVA) | payer OTHER, SELFPAY | PROVIDERS: PCP Family Medicine; Visit Provider Family Medicine | DX: Z00.00 Encounter for general adult medical examination without abnormal findings (principal); O99.340 Other mental disorders complicating pregnancy, unspecified trimester; F41.9 Anxiety disorder, unspecified; R41.840 Attention and concentration deficit | CPT/HCPCS: 96127; 99212; 99395 ==

== ENCOUNTER 2024-12-19 11:31 | Outpatient (REF) | payer OTHER, SELFPAY ==
--- OUTSIDE RECORDS SUMMARY | 2024-12-19 12:08 | XMS_ITS | Clinical Summary ---
Author Organization [facility] Address [address] [place] [phone] Phone Care Team Providers Care Design Cell Engineer Name Role Phone Aakash Rivera MD Primary Care Provider Allergies Active Allergy Reactions Criticality Noted Date Comments Amoxicillin 11/07/2021 Medications No known medications Active Problems No known active problems Encounters Date Type Department Care Team Description 11/07/2024 12:10 PM EDT - 11/07/2024 11:59 PM EDT Hospital Encounter [facility] [place], [place] Ultrasound [address] [place] [address] Melodie Blank CN Discharge Disposition: Home or Self Care 11/03/2024 Telephone [facility] [address] [place] [address] [place] [address] Unknown, Tanner, 10/06/2024 Transcribe Orders [facility] [address] [place] [address] [place] [address] Martinez Marte Encounter for anatomic survey (Primary [...] 27 Yrs) 2022 PAP SMEAR 07/01/2023 06/30/2020 INFLUENZA VACCINE (#1) 2024 , 05/07/2012, 03/22/2011, Additional history exists COVID-19 VACCINE ( season) 2024 Adult Td,Tdap Booster 06/30/2030 06/30/2020, 018 HIB [...] Ultrasound EGA: 21 weeks 4 day(s) Ultrasound TEAR: 03/16/2025 Established TERA: 03/15/2025 Biometry: BPD: 5.08 [...] Unremarkable anatomy survey. Normal growth. Melodie Blank CN IMG OBSTETRIC Final Res ult * PAP SMEAR FOR RESULT ENTRY ONLY (06/30/2020) Pap smear referred Historical Provider MD HEALTH MAINTENANCE Final Result from Last 3 Months or Most Recently Relevant to Health Maintenance Insurance [place] [address] [address] [address] [place] [place] [address] [place] [address] [address] [place] [address] [place] [address] [place] [address] [address] [place] [address] ACO Care Teams Design Cell Engineer Relationship Specialty Start Date End Date Aakash Rivera MD [address] [place] [address] PCP - General 04/26/21 Additional Source Comments The information contained in this document represents components of the legal health record. It is not the complete legal health record.[facility]
--- OUTSIDE RECORDS SUMMARY | 2024-12-19 12:09 | XMS_ITS | Clinical Summary ---
[facility] [address] [place] [address] Care Team Providers Care Information Security Name Role Phone Unavailable Primary Care Provider [...] 5 season) 2024 Influenza Vaccine (#1) 2024 RSV Immunization Adult Patie nts (1 - 1-dose 75+ series) 2071 HIB Vaccines Aged Out No longer eligi [...]
[2024-12-19 14:30] LABS: MANUAL DIFF FLAG NO
[2024-12-19 14:33] LABS: Hematocrit 36.3 % (37.0-47.0); Hemoglobin 12.2 g/dl (12.0-16.0); Imm Gran Abs Auto 0.11 X10*3/uL (0.00-0.03); Imm Gran Pct Auto 1.1 % (0.0-0.4); Lymphocytes Absolute Auto 1.7 X10*3/uL (1.2-4.9); Mean Corpuscular HGB Conc 33.6 g/dl (31.0-35.0); Mean Corpuscular Hemoglobin 28.6 pg (27.0-33.0); Mean Corpuscular Volume 85.2 fL (80.0-98.0); NRBC Abs Auto 0.000 X10*3/uL (0.0-0.012); NRBC Pct Auto 0.0 /100WBC (0.0-0.2); Platelet Count 170 X10*3/uL (160-400); Red Blood Count 4.26 X10*6/uL (4.20-5.50); White Blood Count 9.9 X10*3/uL (4.8-10.8)
[2024-12-19 15:21] LABS: Alanine Aminotransferase 7 U/L (0-31); Albumin Level 3.7 g/dL (3.5-5.0); Alkaline Phosphatase 64 U/L (39-117); Anion Gap 9 (12-20); Aspartate Amino Transferase 16 U/L (5-31); Blood Urea Nitrogen 6 mg/dL (9-16); Calcium 8.3 mg/dL (8.4-10.2); Carbon Dioxide 23 mmol/L (22-29); Chloride 109 mmol/L (96-108); Cholesterol 322 mg/dL (<200); Estimated Glomerular Filt Rate > 60; HDL Cholesterol 72 mg/dL (>40); Potassium 3.7 mmol/L (3.3-5.1); Sodium 137 mmol/L (135-145); Total Protein 6.5 g/dL (6.5-8.0); Triglycerides 285 mg/dL (<150)
== END 2024-12-19 11:32 | disposition home or self-care (01) ==
LOC: HO.WFDLDS 11:31
PROVIDERS: Visit Provider Family Medicine
DX: Z00.00 Encounter for general adult medical examination without abnormal findings (principal); M54.2 Cervicalgia
CPT/HCPCS: 36415; 80053; 80061; 84443; 85025; 85652

== ENCOUNTER 2025-01-02 13:43 | Outpatient (AMB) | payer OTHER, SELFPAY ==
--- NOTE | 2025-01-02 13:39 | MHC.PC.OV ---
Intake Visit Reasons: f/u labs via telemedicine Allergies amoxicillin Allergy (Mild, Verified 01/02/25 13:40) not sure will check with her mom Tobacco use date assessed: 01/02/25 Dental Screening Dental Screen Date: 01/02/25 Did you have a dental visit in the last 12 months?: No Did you have a dental problem in the last 6 months where you did not have access to dental care?: No Was dental information given to patient?: Patient declined HPI f/u labs via telemedicine HPI Details 29 y/o female presents to f/u labs via telemed. Labs drawn 12/19/24. Reviewed labs with pt. Triglycerides 285. TC 322. LDL 193. HDL 72. Pt is currently . She notes she is about 31 [facility] Medical History Aftercare following left ankle joint replacement surgery Surgical History (Updated 04/04/23 @ 09:16 by ALEX Hsieh) No pertinent past surgical history Family History (Updated 01/02/25 @ 13:41 by Neeta Kirk CMA) Maternal Grandmother High blood pressure Diabetes Mother High blood pressure FH: mental illness Depression Social History (Updated 01/02/25 @ 13:41 by Neeta Kirk CMA) Housing: Apartment Alcohol intake: never Patient Tobacco Use Status: Never used Tobacco e-Cigarette/Vaping Use: Never Used Second Hand Smoke Exposure: No Use of substances other than those prescribed or required for medical reasons: No service: No Current occupational status: employed Current occupational exposures/hazards: No Cognitive needs: No Hearing needs: No Vision needs: No Questionnaire Thrive Questionnaire Date Thrive assessed: 12/04/24 I am a: Patient What is your living situation today?: I have a steady place to live Within the past 12 months, did the food you bought not last and you didn't have the money to get more?: Never true Within the past 12 months, did you worry whether your food would run out before you got money to buy more?: Never true Do you have trouble paying for medicines?: No Do you have trouble getting transportation to medical appointments?: No Do you have trouble paying your heating and electricity bill?: No Do you have trouble taking care of your child, family member or friend?: No Do you have trouble with day-to-day activities such as bathing, preparing meals, shopping, managing finances, etc.?: No Are you currently unemployed and looking for a job?: No Are you interested in more education?: No Please select the resources that you would like help with: None Currently or been in a relationship where the following occur: No concerns reported THRIVE Score: 0 NICHOLAS-7 AMB Questionnaire NICHOLAS-7 Date NICHOLAS - 7 assessed: 12/04/24 Source: Developed by Drs. Timmy Carpenter, Lavinia Somers, Gerardo Street and colleagues, with an educational sean from [employer]. Review of Systems Const Denies chills, Denies fatigue, Denies fever(s), Denies headache(s) and Denies weakness ENT Denies dizziness and Denies headache(s) Card Denies dyspnea Resp Denies cough, Denies dyspnea, Denies wheezing and Denies other (shortness of breath) Musc Denies numbness and Denies tingling Neuro Denies dizziness, Denies headache(s), Denies numbness, Denies tingling and Denies weakness Psych Denies anxiety and Denies depression Endo Denies fatigue Aller/Immun Denies wheezing Physical exam (Primary Care) Tobacco/Smoking Status: Tobacco use Status Tobacco use date assessed 01/02/25 01/02/25 13:42 Patient Tobacco Use Status Never used Tobacco 01/02/25 13:42 e-Cigarette/Vaping Use Never Used 01/02/25 13:42 Thrive Assessment: Date of Thrive Assessment Date Thrive assessed 12/04/24 01/02/25 13:42 Currently or been in a relationship where the following occur: No concerns reported Telehealth Telehealth Telehealth Platform: Telephone Location of provider rendering services: practice address Location of patient: address on file Patient Identification confirmed using: Name, : Yes Telehealth method: voice only Patient verbally consented to treatment: Yes Patient verbally consented to billing insurance company: Yes Patient informed of any privacy concerns related to visit: Yes Minutes spent on Phone/Video with Pt.: 5 Coding Level of Care Code Tele Est Pt Level 2 (00337) Diagnoses Hyperlipidemia E78.5 Incidental Z33.1 Assessment & Plan Assessment & Plan (1) Hyperlipidemia: Code(s): E78.5 - Hyperlipidemia, unspecified Category: Medical Plan: LDL cholesterol is significantly elevated Encouraged her to work on a diet lower in saturated fats and cholesterol Encouraged healthy diet (2) Incidental : Code(s): Z33.1 - state, incidental Category: Medical Plan: Patient at approximately 31 [facility]
--- OUTSIDE RECORDS SUMMARY | 2025-01-02 13:58 | XMS_ITS | Clinical Summary ---
Author Organization [facility] Address [address] [place] [phone] Phone Care Team Providers Care Crane Hooker Name Role Phone Aakash Rivera MD Primary Care Provider Allergies Active Allergy Reactions Criticality Noted Date Comments Amoxicillin 11/07/2021 Medications No known medications Active Problems No known active problems Encounters Date Type Department Care Team Description 11/07/2024 12:10 PM EDT - 11/07/2024 11:59 PM EDT Hospital Encounter [facility] [place], OB Ultrasound [address] [place] [address] Melodie Blank CN Discharge Disposition: Home or Self Care 11/03/2024 Telephone [facility] [address] [place] [address] [place] [address] Unknown, Tanner, 10/06/2024 Transcribe Orders [facility] [address] [place] [address] [place] [address] Martinez Marte Encounter for anatomic survey (Primary [...] Recently Relevant to Health Maintenance Insurance [place] [address] [place] [address] [place] [address] [place] [address] [place] [address] [place] [address] [place] [address] [place] [address] [place] [address] [place] [address] [place] [place] [address] [place] [address] [place] [place] [address] ACO Care Teams Crane Hooker Relationship Specialty Start Date End Date Aakash Rivera MD [address] [place] [address] PCP - General 04/26/21 Additional Source Comments The information contained in this document represents components of the legal health record. It is not the complete legal health record.[facility]
--- OUTSIDE RECORDS SUMMARY | 2025-01-02 13:58 | XMS_ITS | Clinical Summary ---
Author Organization [facility] it Address [address] [place] [address] Care Team Providers Care Seam Taper Machine Name Role Phone Unavailable Primary Care Provider [...] Cervical Cancer Screening: P ap Smear 2017 HPV Vaccines (1 - 3-dose SCD M series) 2023 Depression Screening 04/02/2024 COVID-19 Vaccine ( - 2023-2 5 season) 2024 Influenza Vaccine [...]
== END 2025-01-02 15:13 | disposition home or self-care (01) ==
LOC: HO.HMCFM 13:43
PROVIDERS: PCP Family Medicine; Visit Provider Family Medicine
DX: E78.5 Hyperlipidemia, unspecified (principal); Z33.1 Pregnant state, incidental